=== PATIENT | male | born 2000 | race Two or more races ===

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

== ENCOUNTER 2021-01-05 16:57 | Emergency (ER) | payer MEDICAID ==
[~2021-01-05] VITALS: Ht 177.8 cm; Wt 78.7 kg
[~2021-01-05 16:57] MED LIST changes: +HYDR25TA PO
[2021-01-05 18:15] VITALS: BP 120/59
[2021-01-05] MEDS ORDERED: SULF1TAB24 PO (18:42)
[2021-01-05] MEDS ORDERED: CEPH500C PO (18:42)
--- NOTE | 2021-01-05 18:42 | ED.ADGEN ---
Past Medical History Past Medical History: Anxiety, Asthma, Depression, High Cholesterol, Other Additional Past Medical Histor: ADHD, KIDNEY CYST Past Surgical History: Tonsillectomy Additional Past Surgical Histo: T&A Smoking Status: Current Every Day Smoker Alcohol Use: None Drug Use: Marijuana General Adult EDM: Chief Complaint: ABSCESS HPI: HPI: Patient is a 20 year old AA male who presents emergency department with complaints of a red, swollen, warm, tender area to his left inner thigh for the last 3 to 4 days. Patient states he has had boils like this before but never this bad. He denies any fever, cough, nausea, vomiting, or abdominal pain. Patient currently rates pain a 10 out of 10 on pain scale, he denies any alleviating factors, pain is worse if the area is touched. Patient denies any drainage or bleeding from the affected area. He states that his last tetanus shot was less than 5 years ago. Review of Systems: Review of Systems: Complete ROS is negative unless otherwise noted in the HPI. Allergies: Allergies: Allergies Coded Allergies Type Severity Reaction Last Updated Verified No Known Drug Allergies 04/27/15 No Physical Exam: PE: See above Constitutional: Well developed, well nourished, no acute distress, non-toxic appearance. [] HENT: Normocephalic, atraumatic, bilateral external ears normal, nose normal. [] Eyes: PERRLA, EOMI, conjunctiva normal, no discharge. [] Neck: Normal range of motion, no stridor. [] Cardiovascular:Heart rate regular rhythm Lungs & Thorax: Respirations even and unlabored, no retractions, no respiratory distress Skin: Warm, dry; 5 cm diameter erythemic, indurated, tender, and warm area to medial upper left thigh with central fluctuant areas consistent with cutaneous abscess noted. Extremities: No cyanosis, ROM intact, no edema. [] Neurologic: Alert and oriented X 3, no focal deficits noted. [] Psychologic: Affect normal, judgement normal, mood normal. [] EKG: EKG: [] Heart Score: C/O Chest Pain: No Radiology/Procedures: Radiology/Procedures: Indication: abscess of left thigh Procedure: The patient was positioned appropriately. Local anesthesia declined by patient. A sterile 18-gauge needle was inserted into the apex of the lesion and of bloody pus material was expressed. Patient's tetanus status was up-to-date. The patient tolerated the procedure well. Complications: none. Course & Med Decision Making: Course & Med Decision Making Pertinent Labs and Imaging studies reviewed. (See chart for details) [] Gisselle Disclaimer: Gisselle Disclaimer: This electronic medical record was generated, in whole or in part, using a voice recognition dictation system. Departure Departure Impression: Primary Impression: Abscess of left thigh Disposition: HOME / SELF CARE / HOMELESS Condition: STABLE Referrals: NO PCP (PCP) Patient Instructions: Abscess, Care After, Abscess, [id number] Additional Instructions: Fill the prescription(s) and use as directed. You may take tylenol or ibuprofen as needed for pain. Apply warm, moist packs to the area every 1-2 hours today and tomorrow as instructed then as needed for discomfort. Follow up with your primary care doctor or return to the ER in 48 hours to have wound rechecked. Return to the ER sooner if your symptoms worsen or fever develops. Scripts Sulfamethoxazole/Trimethoprim (BACTRIM DS TABLET) 1 Each Tablet 1 TAB PO BID for 7 Days, #14 TAB 0 Refills Prov: TOMMY SIMPSON APRN 01/05/21 Cephalexin (CEPHALEXIN) 500 Mg Capsule 1 CAP PO QID for 7 Days, #28 CAP 0 Refills Prov: TOMMY SIMPSON APRN 01/05/21 TOMMY SIMPSON APRN Jan 05, 2021 18:42
== END 2021-01-05 18:57 | disposition home or self-care (01) ==
LOC: ER 16:57
DX: L02.416 Cutaneous abscess of left lower limb (principal); J45.909 Unspecified asthma, uncomplicated; E78.00 Pure hypercholesterolemia, unspecified; F17.200 Nicotine dependence, unspecified, uncomplicated
CPT/HCPCS: 10060; 99283

== ENCOUNTER 2021-01-11 15:19 | Emergency (ER) | payer MEDICAID ==
[~2021-01-11 15:19] MED LIST changes: +CEPH500C PO
== END 2021-01-11 17:00 | disposition left against medical advice (07) ==
LOC: ER 15:19
DX: H92.09 Otalgia, unspecified ear (principal); Z53.21 Procedure and treatment not carried out due to patient leaving prior to being seen by health care provider

== ENCOUNTER 2021-02-09 08:51 | Emergency (ER) | payer MEDICAID ==
[~2021-02-09] VITALS: Ht 180.3 cm; Wt 79.5 kg
[2021-02-09] MEDS ORDERED: ACETAMINOPHEN 325 MG TABLET. PO ONE (09:30)
[2021-02-09] MEDS ORDERED: IBUPROFEN 200 MG TABLET. PO ONE (09:30)
[2021-02-09] MEDS ORDERED: CIPR7.5D EACH EAR (10:08)
--- NOTE | 2021-02-09 10:09 | PHYS DOC ---
Past Medical History Past Medical History: Anxiety, Asthma, Depression, High Cholesterol, Other Additional Past Medical Histor: ADHD, KIDNEY CYST Past Surgical History: Tonsillectomy Additional Past Surgical Histo: T&A Smoking Status: Current Every Day Smoker Alcohol Use: None Drug Use: Marijuana General Adult EDM: Chief Complaint: EARACHE/EAR PAIN HPI: HPI: Patient is a 20 year old male presents to the emergency department with chief complaint of bilateral ear pain for the past 3 days. Patient reports similar ear pain from last month and thought he may have an ear infection, reports she had some ear medication left and put 3 drops of medicine in his left ear yesterday. Patient reports a 7 out of 10 ear pain bilaterally. Denies dizziness, recent fever or chills, sore throat, chest congestion nasal congestion, denies chest pain. Denies rashes to his skin. Denies visual disturbances. Denies syncopal episodes. Denies any other physical complaints or physical concerns. Review of Systems: Review of Systems: 14 body systems of review of systems have been reviewed. See HPI for pertinent positives and negative responses, otherwise all other systems are negative, nonpertinent or noncontributory. Constitutional: Negative except as outlined in HPI above. Skin: Negative except as outlined in HPI above. Eyes: Negative except as outlined in HPI above. HENT: Negative except as outlined in HPI above. Respiratory: Negative except as outlined in HPI above. Cardiovascular: Negative except as outlined in HPI above. GI: Negative except as outlined in HPI above. : Negative except as outlined in HPI above. Musculoskeletal: Negative except as outlined in HPI above. Integument: Negative except as outlined in HPI above. Neurologic: Negative except as outlined in HPI above. Endocrine: Negative except as outlined in HPI above. Lymphatic: Negative except as outlined in HPI above. Psychiatric: Negative except as outlined in HPI above. Heart Score: C/O Chest Pain: No Risk Factors: Risk Factors: DM, Current or recent (<one month) smoker, HTN, HLP, family history of CAD, obesity. Risk Scores: Score 0 - 3: 2.5% MACE over next 6 weeks - Discharge Home Score 4 - 6: 20.3% MACE over next 6 weeks - Admit for Clinical Observation Score 7 - 10: 72.7% MACE over next 6 weeks - Early Invasive Strategies Current Medications: Current Medications Medications (Trade) Dose Ordered Sig/Erica Start Time Stop Time Status Last Admin Dose Admin Acetaminophen (Tylenol) 650 mg 1X ONCE 02/09/21 09:30 02/09/21 09:31 DC 02/09/21 09:48 650 MG Ibuprofen (Motrin) 600 mg 1X ONCE 02/09/21 09:30 02/09/21 09:31 DC 02/09/21 09:48 600 MG Allergies: Allergies: Allergies Coded Allergies Type Severity Reaction Last Updated Verified No Known Drug Allergies 04/27/15 No Physical Exam: PE: Constitutional: Well developed, well nourished, no acute distress, non-toxic appearance. 20-year-old male in no apparent distress. HENT: Normocephalic, atraumatic. Oropharynx moist, pink, no deep tissue infectious process appreciated, no tonsillar erythema or edema, no uvular edema, no peritonsillar edema, no postnasal drip, no lymphadenopathy of the head or neck appreciated, bilateral TMs intact, partially visualized related to bilateral external auditory canals erythematous with purulent drainage. Eyes: Conjunctiva normal, no discharge. Neck: Normal range of motion, no stridor. Cardiovascular: No cyanosis appreciated, distal cap refill less than 2 seconds. Lungs & Thorax: Patient is in no respiratory distress, no audible adventitious lung sounds appreciated. Abdomen: Nontender, no abnormalities noted. Skin: Warm, dry, no erythema, no rash. Back: No tenderness, no deformities. Extremities: No tenderness, no cyanosis, no clubbing, ROM intact, no edema. Neurologic: Alert and oriented X 3, normal motor function, normal sensory function, no focal deficits noted. Psychologic: Affect normal, judgement normal, mood normal. Current Patient Data: Vital Signs: Vital Signs Date Time Temp Pulse Resp B/P (MAP) Pulse Ox O2 Delivery O2 Flow Rate FiO2 02/09/21 09:08 98.2 85 16 115/68 (79) 97 Room Air 98.2 EKG: EKG: [] Radiology/Procedures: Radiology/Procedures: [] Course & Med Decision Making: Course & Med Decision Making Pertinent Labs and Imaging studies reviewed. (See chart for details) 20-year-old male, vital signs reviewed, presents emergency department concerning bilateral ear pain for 3 days. Physical examination consistent with bilateral otitis externa, discussed with patient reoccurring otitis externa recommend follow-up with ENT, will give ENT recommendation on discharge for follow-up. Discussed with patient using Ciprodex eardrops regimen, patient reports he has been on this in the past and gives verbal understanding of medication and side effects. Patient given p.o. pain medication prior to discharge. Patient is amenable to ED discharge planning. Discussed with the patient all findings and diagnostic testing as well as the need to follow-up with their primary care provider for further evaluation and treatment or return to the ED if any new or worsening symptoms. Strict return precautions were also discussed at length, the patient voiced understanding and agreement with the discharge planning. The patient was nontoxic in appearance, in no apparent distress, and hemodynamically stable at the time of disposition. Entefy Disclaimer: Entefy Disclaimer: This electronic medical record was generated, in whole or in part, using a voice recognition dictation system. Departure Departure Impression: Primary Impression: Otitis externa of both ears Qualified Codes: H60.503 - Unspecified acute noninfective otitis externa, bilateral Disposition: HOME / SELF CARE / HOMELESS Condition: GOOD Referrals: NO PCP (PCP) Patient Instructions: Otitis Externa Additional Instructions: You were seen today in the emergency department for bilateral ear pain. Your physical presentation is consistent with otitis externa, this is a ear infection of the tubes of your ears leading to your eardrums from the outside. I am starting you on Ciprodex medication eardrops, please take as directed. You have indicated you had a similar ear infection a month ago. We discussed follow-up with an ENT specialist for ongoing ear infections. You may consider using the [facility] department of otolaryngology located at [address] [place] [address], other telephone number is area code [phone]. Please call tomorrow for an appointment for follow-up. Please continue to use Tylenol or Motrin for your discomfort. Thank you for visiting our Emergency Department. It was a pleasure taking care of you today in the emergency department and we appreciate you trusting us with your care. If any additional problems come up don't hesitate to return to visit us. Please follow up with your primary care provider so they can plan additional care if needed and know about the problem that you had. If symptoms worsen come back to the Emergency Department. Any concerning symptoms that start such as chest pain, shortness of air, weakness or numbness on one side of the body, running high fevers or any other concerning symptoms return to the ER. Scripts Ciprofloxacin Hcl/Dexameth (CIPRODEX OTIC SUSPENSION) 7.5 Ml Drops.susp 4 DROP EACH EAR BID for otitis externa for 7 Days, #7.5 ML [address] 4 drops in each ear 2 times a day for the next 7 days. Prov: BERNA JI APRN 02/09/21 BERNA JI APRN Feb 09, 2021 10:09
[2021-02-09 10:12] VITALS: BP 110/61
== END 2021-02-09 10:30 | disposition home or self-care (01) ==
LOC: ER 08:51
DX: H60.503 Unspecified acute noninfective otitis externa, bilateral (principal); J45.909 Unspecified asthma, uncomplicated; E78.00 Pure hypercholesterolemia, unspecified; F17.200 Nicotine dependence, unspecified, uncomplicated
CPT/HCPCS: 99283

== ENCOUNTER 2021-02-26 22:50 | Emergency (ER) | payer MEDICAID ==
[~2021-02-26 22:50] MED LIST changes: +CIPR7.5D EACH EAR
== END 2021-02-27 01:03 | disposition left against medical advice (07) ==
LOC: ER 22:50
DX: Z20.2 Contact with and (suspected) exposure to infections with a predominantly sexual mode of transmission (principal); Z53.21 Procedure and treatment not carried out due to patient leaving prior to being seen by health care provider

== ENCOUNTER 2021-03-10 18:36 | Emergency (ER) | payer MEDICAID ==
[~2021-03-10] VITALS: Ht 180.3 cm; Wt 72.0 kg
[2021-03-10 19:20] VITALS: BP 124/65
[2021-03-10 19:40] LABS: BILIRUBIN,URINE NEGATIVE (NEG); CLARITY,URINE CLEAR; COLOR,URINE YELLOW; NITRITE,URINE NEGATIVE (NEG); PROTEIN,URINE NEGATIVE (NEG-TRACE); UROBILINOGEN,URINE 0.2 mg/dL (0.2 mg/dL)
[2021-03-10 19:45] LABS: BACTERIA,URINE 0 /HPF (0-FEW); RBC,URINE 0 /HPF (0-2); WBC,URINE 0 /HPF (0-4)
[2021-03-10] MEDS ORDERED: metroNIDAZOLE 500 MG TABLET PO ONE (19:45)
[2021-03-10] MEDS ORDERED: cefTRIAXone IM 500 MG VIAL. IM ONE (19:45)
[2021-03-10] MEDS ORDERED: ACYC800T88 PO (19:46)
[2021-03-10] MEDS ORDERED: DOXY100T PO (19:46)
--- NOTE | 2021-03-10 19:46 | PHYS DOC ---
Past Medical History Past Medical History: Anxiety, Asthma, Depression, High Cholesterol, Other Additional Past Medical Histor: ADHD, KIDNEY CYST ([employer]) Past Surgical History: Tonsillectomy Additional Past Surgical Histo: T&A ([employer]) Smoking Status: Current Every Day Smoker Alcohol Use: None Drug Use: Marijuana ([employer]) General Adult EDM: Chief Complaint: SEXUALLY TRANSMITTED DISEASE HPI: HPI: Patient is a 20 year old male who presents the ED today complaining of possible genital herpes. Symptoms began yesterday. Patient states his girlfriend was also diagnosed with herpes a couple weeks ago. ([employer]GER [employer]) Review of Systems: Review of Systems: Constitutional: Denies fever or chills. [] : Reports penile lesions denies dysuria. [] Musculoskeletal: Denies back pain or joint pain. [] Integument: Denies rash. [] Neurologic: Denies headache, focal weakness or sensory changes. [] Psychiatric: Denies depression or anxiety. [] ([employer]) Heart Score: C/O Chest Pain: N/A Risk Factors: Risk Factors: DM, Current or recent (<one month) smoker, HTN, HLP, family history of CAD, obesity. Risk Scores: Score 0 - 3: 2.5% MACE over next 6 weeks - Discharge Home Score 4 - 6: 20.3% MACE over next 6 weeks - Admit for Clinical Observation Score 7 - 10: 72.7% MACE over next 6 weeks - Early Invasive Strategies ([employer]) Current Medications: Current Medications Medications (Trade) Dose Ordered Sig/Erica Start Time Stop Time Status Last Admin Dose Admin Ceftriaxone Sodium (Rocephin Im) 500 mg 1X ONCE 03/10/21 19:45 03/10/21 19:46 03/10/21 19:38 500 MG Metronidazole (Flagyl) 2,000 mg 1X ONCE 03/10/21 19:45 03/10/21 19:46 03/10/21 19:37 2,000 MG ([employer]) Allergies: Allergies: Allergies Coded Allergies Type Severity Reaction Last Updated Verified No Known Drug Allergies 04/27/15 No (LUIS ROJAS APRN) Physical Exam: PE: Constitutional: Well developed, well nourished, no acute distress, non-toxic appearance. [] Penile exam with Kassy male arriving in the room. Penile shaft noted for fluid fluid blisters consistent with herpes Skin: Warm, dry, no erythema, no rash. [] Back: No tenderness, no CVA tenderness. [] Extremities: No tenderness, no cyanosis, no clubbing, ROM intact, no edema. [] Neurologic: Alert and oriented X 3, normal motor function, normal sensory function, no focal deficits noted. [] Psychologic: Affect normal, judgement normal, mood normal. [] (LUIS ROJAS APRN) Current Patient Data: Vital Signs: Vital Signs Date Time Temp Pulse Resp B/P (MAP) Pulse Ox O2 Delivery O2 Flow Rate FiO2 03/10/21 19:20 98.2 99 16 124/65 (84) 99 Room Air 98.2 (LUIS ROJAS APRN) EKG: EKG: [] (LUIS ROJAS APRN) Radiology/Procedures: Radiology/Procedures: [] (LUIS ROJAS APRN) Course & Med Decision Making: Course & Med Decision Making Pertinent Labs and Imaging studies reviewed. (See chart for details) Is a 14-year-old male patient presenting to the ED today with a first outbreak of herpes. Talk to patient about the lifelong nature of this disease, management and methods to prevent spreading the disease to other people. He was treated for the other coinfections of STDs including gonorrhea chlamydia and trichomonas. He was discharged on acyclovir and doxycycline. Follow-up with the health department for further STD care (LUIS ROJAS APRN) Course & Med Decision Making I was the Attending physician on the above date of service of this patient. This patient was evaluated, examined, treated, and dispositioned from the emergency department by the mid-level practitioner. Although I was working at the time , no assistance was requested. Electronically signed, Irene Urbano DO (IRENE URBANO DO) Gisselle Disclaimer: Gisselle Disclaimer: This electronic medical record was generated, in whole or in part, using a voice recognition dictation system. (LUIS ROJAS APRN) Departure Departure Impression: Primary Impression: Herpes genitalis in men Disposition: HOME / SELF CARE / HOMELESS Condition: STABLE Referrals: NO PCP (PCP) follow up with the health department as needed Patient Instructions: Genital Herpes Additional Instructions: You were evaluated in the emergency room and noted to have genital herpes. Please take the prescribed medications as ordered. This is a lifelong disease. It will tend to break out when you under stress. Please do not have any unprotected sex when you have an outbreak. Consider using a condom all the time. Scripts Acyclovir (ACYCLOVIR) 800 Mg Tablet 1 TAB PO 5XDAY, #50 TAB 3 Refills Prov: LUIS ROJAS APRN 03/10/21 Doxycycline Hyclate (DOXYCYCLINE HYCLATE) 100 Mg Tablet 1 TAB PO BID, #14 TAB Prov: LUIS ROJAS APRN 03/10/21 LUIS ROJAS APRN Mar 10, 2021 19:46 IRENE URBANO DO Mar 11, 2021 01:37
== END 2021-03-10 19:59 | disposition home or self-care (01) ==
LOC: ER 18:36
DX: B00.9 Herpesviral infection, unspecified (principal); E78.00 Pure hypercholesterolemia, unspecified; J45.909 Unspecified asthma, uncomplicated; F17.200 Nicotine dependence, unspecified, uncomplicated
CPT/HCPCS: 81001; 87491; 87591; 96372; 99283; J0696

== ENCOUNTER 2021-04-05 16:31 | Emergency (ER) | payer MEDICAID ==
[~2021-04-05 16:31] MED LIST changes: +ACYC800T88 PO; +DOXY100T PO
== END 2021-04-05 21:35 | disposition left against medical advice (07) ==
LOC: ER 16:31
DX: R42 Dizziness and giddiness (principal); R53.1 Weakness; Z53.21 Procedure and treatment not carried out due to patient leaving prior to being seen by health care provider

== ENCOUNTER 2021-04-14 17:13 | Emergency (ER) | payer MEDICAID ==
[~2021-04-14] VITALS: Ht 177.8 cm; Wt 78.3 kg
[2021-04-14 17:45] VITALS: BP 147/80
[2021-04-14] MEDS ORDERED: AZITHROMYCIN 250 MG TABLET. PO ONE (17:45)
[2021-04-14] MEDS ORDERED: cefTRIAXone IM 500 MG VIAL. IM ONE (17:45)
--- NOTE | 2021-04-14 17:48 | PHYS DOC ---
Past Medical History Past Medical History: Anxiety, Asthma, Depression, High Cholesterol, Other Additional Past Medical Histor: ADHD, KIDNEY CYST Past Surgical History: Tonsillectomy Additional Past Surgical Histo: T&A Smoking Status: Current Every Day Smoker Alcohol Use: None Drug Use: Marijuana General Adult EDM: Chief Complaint: SEXUALLY TRANSMITTED DISEASE HPI: HPI: Patient is a 20 year old male who presents with states his girlfriend is having STD symptoms and so he would like to be checked and treated for STDs today. He states the last time they both had gonorrhea. Patient denies urinary difficulty, pain, penile drainage, penile sores, fever, abdominal pain, nausea, vomiting, diarrhea, headache, dizziness. He denies any symptoms. He denies any pain. Review of Systems: Review of Systems: Constitutional: Denies fever or chills. [] Eyes: Denies change in visual acuity. [] HENT: Denies nasal congestion or sore throat. [] Respiratory: Denies cough or shortness of breath. [] Cardiovascular: Denies chest pain or edema. [] GI: Denies abdominal pain, nausea, vomiting, bloody stools or diarrhea. [] : Denies dysuria. + Concern for sexually transmitted disease [] Musculoskeletal: Denies back pain or joint pain. [] Integument: Denies rash. [] Neurologic: Denies headache, focal weakness or sensory changes. [] Endocrine: Denies polyuria or polydipsia. [] Lymphatic: Denies swollen glands. [] Psychiatric: Denies depression or anxiety. [] Heart Score: C/O Chest Pain: No Allergies: Allergies: Allergies Coded Allergies Type Severity Reaction Last Updated Verified No Known Drug Allergies 04/27/15 No Physical Exam: PE: Constitutional: Well developed, well nourished, no acute distress, non-toxic appearance. [] HENT: Normocephalic, atraumatic, bilateral external ears normal, oropharynx m oist, no oral exudates, nose normal. [] Eyes: PERRLA, EOMI, conjunctiva normal, no discharge. [] Neck: Normal range of motion, no tenderness, supple, no stridor. [] Cardiovascular:Heart rate regular rhythm, no murmur [] Lungs & Thorax: Bilateral breath sounds clear to auscultation [] Abdomen: Bowel sounds normal, soft, no tenderness, no masses, no pulsatile masses. [] Skin: Warm, dry, no erythema, no rash. [] Back: No tenderness, no CVA tenderness. [] Extremities: No tenderness, no cyanosis, no clubbing, ROM intact, no edema. [] Neurologic: Alert and oriented X 3, normal motor function, normal sensory function, no focal deficits noted. [] Psychologic: Affect normal, judgement normal, mood normal. [] Normal physical exam EKG: EKG: [] Radiology/Procedures: Radiology/Procedures: [] Course & Med Decision Making: Course & Med Decision Making Pertinent Labs and Imaging studies reviewed. (See chart for details) See HPI. Alert and oriented x4. Ambulatory steady gait. Speaks in full clear sentences. Skin pink warm and dry. No penile discharge or sores seen. Abdomen is soft and nontender. Afebrile. Patient treated with Rocephin and given azithromycin. Patient is not compliant in the past with medications so I decided to give him the one-time dose of azithromycin for chlamydia coverage. [] Dragon Disclaimer: Gisselle Disclaimer: This electronic medical record was generated, in whole or in part, using a voice recognition dictation system. Departure Departure Impression: Primary Impression: Sexually transmitted disease Disposition: HOME / SELF CARE / HOMELESS Condition: STABLE Referrals: NO PCP (PCP) Patient Instructions: Sexually Transmitted Disease Additional Instructions: Follow-up with a doctor or urologist if needed. You should wear a condom for the next 10 days to make sure the full infection is gone. The chlamydia and gonorrhea take 48 hours to come back and you will be called only if something is positive. ZACHERY FULTON JOB DEVELOPER Apr 14, 2021 17:48
[2021-04-14] MEDS ORDERED: AZITHROMYCIN 250 MG TABLET. ONE (18:11)
[2021-04-14 18:47] LABS: BILIRUBIN,URINE NEGATIVE (NEG); CLARITY,URINE TURBID; COLOR,URINE YELLOW; NITRITE,URINE NEGATIVE (NEG); PROTEIN,URINE 30 mg/dL (NEG-TRACE); UROBILINOGEN,URINE 0.2 mg/dL (0.2 mg/dL)
[2021-04-14 19:02] LABS: BACTERIA,URINE FEW /HPF (0-FEW); RBC,URINE 0 /HPF (0-2); WBC,URINE RARE /HPF (0-4)
== END 2021-04-14 19:27 | disposition home or self-care (01) ==
LOC: ER 17:13
DX: A64 Unspecified sexually transmitted disease (principal); J45.909 Unspecified asthma, uncomplicated; E78.00 Pure hypercholesterolemia, unspecified; F90.9 Attention-deficit hyperactivity disorder, unspecified type; F17.200 Nicotine dependence, unspecified, uncomplicated
CPT/HCPCS: 81001; 87491; 87591; 96372; 99283; J0696

== ENCOUNTER 2021-05-25 21:40 | Emergency (ER) | payer MEDICAID ==
[~2021-05-25] VITALS: Ht 177.8 cm; Wt 72.7 kg
[2021-05-25 23:15] VITALS: BP 114/61
[2021-05-25] MEDS ORDERED: PRED50TA PO (23:40)
[2021-05-25] MEDS ORDERED: VENTOLIN HFA18 GM INH (23:40)
--- NOTE | 2021-05-25 23:40 | PHYS DOC ---
Past Medical History Past Medical History: Anxiety, Asthma, Depression, High Cholesterol, Other Additional Past Medical Histor: ADHD, KIDNEY CYST Past Surgical History: Tonsillectomy Additional Past Surgical Histo: T&A Smoking Status: Current Every Day Smoker Alcohol Use: None Drug Use: Marijuana Adult General Chief Complaint Chief Complaint: FLU SYMPTOM HPI HPI The patient is a 20-year-old male with a history of childhood asthma who presents for evaluation of mild shortness of breath and nonproductive cough beginning over the course of the last day or 2 in the setting of almost 2 weeks of upper respiratory congestion and rhinorrhea. No associated fevers, vomiting, chest pain of any kind, abdominal pain, flank pain, back pain, dysuria, hematuria, polyuria or oliguria, changes in bowel habits. Patient is alert and pleasantly and appropriately interactive and in no acute distress with completely appropriate vital signs upon initial evaluation here in the emergency department. He ambulated in with a narrow, steady gait. He is noted to be mildly wheezing upon initial evaluation here in the emergency department. Review of Systems Review of Systems A 12 point review of systems was completed and was negative except where noted in HPI above. Current Medications Current Medications Current Medications Medications (Trade) Dose Ordered Sig/Erica Start Time Stop Time Status Last Admin Dose Admin Prednisone (Prednisone) 60 mg 1X ONCE 05/25/21 23:30 05/25/21 23:31 UNV Allergies Allergies Allergies Coded Allergies Type Severity Reaction Last Updated Verified No Known Drug Allergies 04/27/15 No Physical Exam Physical Exam 20-year-old male appearing nontoxic and in no acute distress. Head is normocephalic and atraumatic. Neck is supple and nontender. Oropharynx is moist. Lungs with scattered wheezes to all alexandra without other adventitious sounds and with very good air movement bilaterally. There is a normal S1 and S2 without rubs or gallops and capillary refill is appropriate, less than 2 seconds globally. Abdomen is soft, nontender and nondistended. Skin is warm and dry wi thout cyanosis, clubbing or edema. Psychiatrically, the patient demonstrates appropriate mood and affect and is alert. Evaluation of the extremities reveals BUEs and BLEs neurovascularly intact distally with strength out of 5, sensation intact light touch in all nerve distributions, radial, DP and PT pulses 2+ equal bilaterally, capillary refill less than 2 seconds, hands and feet warm and well- perfused. No dependent peripheral edema distally. No calf tenderness or swelling bilaterally. Homans test is negative bilaterally. EKG EKG [] Radiology/Procedures Radiology/Procedures [] Course & Med Decision Making Course & Med Decision Making Completely well-appearing 20-year-old male presenting with mild shortness of breath and wheezing today in the setting of mild upper respiratory symptoms for the past couple of weeks. Vital signs and clinical examination are very reassuring. Patient does have a history of childhood asthma. Will treat as asthma exacerbation with albuterol inhaler and steroid burst. Have swabbed for Covid and flu and will contact the patient to let him know if his testing is positive. He understands that if he feels worse instead of better or develops other new symptoms of concern that he will need to return to the emergency department immediately for reevaluation. All questions are answered. Dragon Disclaimer Dragon Disclaimer This electronic medical record was generated, in whole or in part, using a voice recognition dictation system. Departure Departure Impression: Primary Impression: Asthma exacerbation Additional Impression: Upper respiratory infection, viral Disposition: 01 HOME / SELF CARE / HOMELESS Condition: IMPROVED Patient Instructions: Asthma, Adult, Upper Respiratory Infection, Adult Additional Instructions: Follow-up very closely with your primary care doctor in the office in the next 2 to 4 days for a reevaluation of your symptoms and to discussion of next best steps in care. Get plenty of rest and drink plenty of fluids. Take the prednisone steroid daily for the next 5 days, in the mornings if possible, to treat your asthma flare. You may use the albuterol inhaler every 4 hours (2 puffs) for wheezing and/or cough and/or shortness of breath. Return to the emergency department right away for worsening symptoms of any kind or with any other new symptoms of concern. We have tested you for flu and for Covid. If either of these test come back positive we will contact you and let you know. Scripts Albuterol Sulfate (VENTOLIN HFA INHALER) 18 Gm Hfa.aer.ad 2 PUFF INH Q4HRS for SOA/wheezing/cough, #1 INHALER 1 Refill Prov: RAMIRO POWER MD 05/25/21 Prednisone (PREDNISONE) 50 Mg Tablet 1 TAB PO DAILY, #5 TAB Prov: RAMIRO POWER MD 05/25/21 Problem Qualifiers RAMIRO POWER MD May 25, 2021 23:40
[2021-05-25] MEDS ORDERED: predniSONE 20 MG TABLET PO ONE (23:45)
[2021-05-25 23:48] LABS: INFLUENZA A PATIENT NEGATIVE (NEGATIVE); INFLUENZA B PATIENT NEGATIVE (NEGATIVE)
--- NOTE | 2021-05-26 16:49 | NUR ---
IP: Attempted to contact pt concerning covid results. No answer, left a voicemail to return the call.
--- NOTE | 2021-05-27 09:26 | NUR ---
Attempted to call patient regarding test results, left voicemail to return phone call.
== END 2021-05-25 23:46 | disposition home or self-care (01) ==
LOC: ER 21:40
DX: J45.901 Unspecified asthma with (acute) exacerbation (principal); J06.9 Acute upper respiratory infection, unspecified; B97.89 Other viral agents as the cause of diseases classified elsewhere; Z20.822 Contact with and (suspected) exposure to COVID-19; E78.00 Pure hypercholesterolemia, unspecified; F17.200 Nicotine dependence, unspecified, uncomplicated; F90.9 Attention-deficit hyperactivity disorder, unspecified type
CPT/HCPCS: 87426; 87804; 99283; J7512; U0003; U0005

== ENCOUNTER 2021-06-21 00:23 | Emergency (ER) | payer MEDICAID ==
[~2021-06-21] VITALS: Ht 177.8 cm; Wt 83.3 kg
[~2021-06-21 00:23] MED LIST changes: +PRED50TA PO; +VENTOLIN HFA18 GM INH
[2021-06-21 01:21] VITALS: BP 133/80
--- NOTE | 2021-06-21 01:28 | PHYS DOC ---
Past Medical History Past Medical History: Anxiety, Asthma, Depression, High Cholesterol, Other Additional Past Medical Histor: ADHD, KIDNEY CYST Past Surgical History: No Surgical History Additional Past Surgical Histo: T&A Smoking Status: Current Every Day Smoker Alcohol Use: None Drug Use: Marijuana General Adult EDM: Chief Complaint: SEXUALLY TRANSMITTED DISEASE HPI: HPI: Patient is a 20 year old male who presents for a "STD check." States that his girlfriend made him come to the emergency department to get chec ked for gonorrhea and chlamydia. States that he is not having any symptoms and specifically denies penile discharge, dysuria, urgency, frequency, or genital sores. States his girlfriend was concerned that she may have an STI due to having some clear discharge during the time near her ovulation, that self resolves. They both had an episode of gonorrhea approximately 1 year ago, but he reports that they both received full treatment with ceftriaxone and doxycycline. He has had no other sexual partners in the past year. He believes that she is monogamous, but is not entirely sure. Review of Systems: Review of Systems: Constitutional: Denies fever or chills. [] Eyes: Denies change in visual acuity. [] HENT: Denies nasal congestion or sore throat. [] Respiratory: Denies cough or shortness of breath. [] Cardiovascular: Denies chest pain or edema. [] GI: Denies abdominal pain, nausea, vomiting, bloody stools or diarrhea. [] : Denies dysuria. [] Musculoskeletal: Denies back pain or joint pain. [] Integument: Denies rash. [] Neurologic: Denies headache, focal weakness or sensory changes. [] Endocrine: Denies polyuria or polydipsia. [] Lymphatic: Denies swollen glands. [] Psychiatric: Denies depression or anxiety. [] Heart Score: C/O Chest Pain: No Allergies: Allergies: Allergies Coded Allergies Type Severity Reaction Last Updated Verified No Known Drug Allergies 06/21/21 No Physical Exam: PE: Constitutional: Well developed, well nourished, no acute distress, non-toxic appearance. [] HENT: Normocephalic, atraumatic Cardiovascular:Heart rate regular Lungs & Thorax: Normal work of breathing : Patient refuses exam. "its all normal down there." Skin: Warm, dry, no erythema, no rash. [] Neurologic: Alert and oriented X 3, normal motor function, normal sensory function, no focal deficits noted. [] Psychologic: Affect normal, judgement normal, mood normal. [] Current Patient Data: Vital Signs: Vital Signs Date Time Temp Pulse Resp B/P (MAP) Pulse Ox O2 Delivery O2 Flow Rate FiO2 06/21/21 01:21 98.9 79 18 133/80 (97) 98 Room Air 98.9 EKG: EKG: [] Radiology/Procedures: Radiology/Procedures: [] Course & Med Decision Making: Course & Med Decision Making Pertinent Labs and Imaging studies reviewed. (See chart for details) Patient a 20-year-old male who presents to the emergency department requesting gonorrhea and Chlamydia testing. States that he is asymptomatic, but his girlfriend is worsening to be tested. GC/chlamydia urine sent. Empiric treatment not given due to lack of symptoms. [id number] Disclaimer: [employer] Disclaimer: This electronic medical record was generated, in whole or in part, using a voice recognition dictation system. Departure Departure Impression: Primary Impression: Screen for STD (sexually transmitted disease) Disposition: HOME / SELF CARE / HOMELESS Condition: STABLE Referrals: NO PCP (PCP) Additional Instructions: We are checking for gonorrhea and chlamydia. You will not receive the results for several days. Please do not have sexual intercourse while you are awaiting your results. Please use barrier protection if you cannot abstain completely from sexual intercourse. If your results return positive you will receive a phone call and you will need to return to the emergency department to seek appropriate antibiotic treatment. TERRELL ENCINAS MD Jun 21, 2021 01:28
== END 2021-06-21 01:55 | disposition home or self-care (01) ==
LOC: ER 00:23
DX: Z11.3 Encounter for screening for infections with a predominantly sexual mode of transmission (principal); J45.909 Unspecified asthma, uncomplicated; F17.200 Nicotine dependence, unspecified, uncomplicated; E78.00 Pure hypercholesterolemia, unspecified
CPT/HCPCS: 87491; 87591; 99283